=== PATIENT | female | born 1975 | race Caucasian/White ===

== ENCOUNTER → 2023-04-20 | Outpatient (CLI) | payer BC, OTHER | LOC: M RAD 15:15 | PROVIDERS: ATTEND Nurse Practitioner Family | DX: D17.1 Benign lipomatous neoplasm of skin and subcutaneous tissue of trunk (principal) ==

== ENCOUNTER 2024-02-01 09:43 | Day surgery (SDC) | payer BC ==
[~2024-02-01] VITALS: Ht 172.7 cm; Wt 99.3 kg
[~2024-02-01 09:43] MED LIST: CHOL10CA2 PO; FLUO40CA PO; FOLI400T13 PO; LEVE500T88 PO
[2024-02-01] MEDS ORDERED: LR 1,000 ML IV SCH ×2 (09:50→12:50)
[2024-02-01] MEDS ORDERED: LIDOCAINE 2% INJ 100 MG/5 ML SYRINGE As Ordered ONE (11:10)
[2024-02-01] MEDS ORDERED: propofoL 200 MG/20 ML VIAL As Ordered ONE (11:10)
[2024-02-01] MEDS ORDERED: MIDAZOLAM INJ 2MG/2ML VIAL As Ordered ONE (11:10)
[2024-02-01] MEDS: ceFAZolin SOD 2 GM in IV 1 EA IV ONE (11:54)
[2024-02-01] MEDS ORDERED: oxyCODONE 5MG TAB PO PRN (12:50)
[2024-02-01] MEDS ORDERED: METOCLOPRAMIDE INJ 10MG/2ML VIAL IV PRN (12:50)
[2024-02-01] MEDS ORDERED: ONDANSETRON 4MG 2ML VIAL IV PRN (12:50)
[2024-02-01 13:25] VITALS: BP 133/70; TEMP 98; O2SAT 99
== END 2024-02-01 13:31 | disposition home or self-care (01) ==
LOC: M SDC 09:43
PROVIDERS: ATTEND Surgery
DX: D17.1 Benign lipomatous neoplasm of skin and subcutaneous tissue of trunk (principal); G47.30 Sleep apnea, unspecified; Z79.899 Other long term (current) drug therapy
CPT/HCPCS: 21931; 88304; 93005; J0665; J0690; J2250